=== PATIENT | male | born 1970 | race Caucasian/White ===

== ENCOUNTER 2017-08-07 10:24 | Emergency (ER) | payer SELFPAY ==
[~2017-08-07] VITALS: Ht 177.8 cm; Wt 65.8 kg
[~2017-08-07 10:24] MED LIST: CELEXA10 MG PO; HYDROCODONE1 TABLET PO; KEFLEX 500MG.500 MG PO; MOTRIN600 M1 PO; NOMEDS *; TRAMADOL 50MG T50 MG PO; VOLTAREN75 MG PO
--- NOTE | 2017-08-07 10:36 | Emergency Room Report ---
History of Present Illness Time Seen by [id number] Presenting Problem in Triage Pt arrived:Walked Presenting Problem:PT WAS CHANGING A [employer] KIDNEY PULLER WHEN IT POPPED AND CAUGHT HIS RIGHT ARM BETWEEN THE FENDER AND TIRE. PT HAS APPROX. 2 IN LAC TO THE RIGHT FOREARM AND PAIN Onset of symptoms date/time:/ or onset unknown for:MEDICAL HX UNKNOWN Treatment Prior to Arrival: SHRUB GROWER Provided by: Sepsis Risk Assessment: Temp: 97.2 B/P: 145/100 MAP: 115 Pulse: 73 Resp: 16 Recent fever? N Clinical Suspician of Infection? N Mental Status: 1 - Regular (Normal Baseline) Sepsis Risk:Low Sepsis Risk Have you (or family members/close friends) recently traveled outside the [place]? N If Yes, where/when: Have you had exposure to infectious disease within the past month? N TB? Other? Specify: Comment The patient was wearing a tire of a lawnmower that exploded, pinning his RIGHT forearm against the wheel well. He complains that his entire RIGHT upper extremity feels numb from the shoulder to the fingers. He has pain at the site of a laceration on his extensor surface of his forearm. Last tetanus shot 2 years ago. ALLERGIES Coded Allergies: No Known Allergies (06/28/16) Home Medications Reported Medications No Known Home Medications History Medical History General CAD? No Angina: No MT: No Hypertension? No Hyperlipidemia? No CHF? No DVT? No PE? No COPD? No Asthma? No Anemia? No GERD? No Gastric ulcers? No GI Bleed? No Hernia? No Thyroid Problems? No Hypothyroidism? No CVA? No Seizures? No Diabetes? No Insulin Dependent: No Insulin Pump: No Home FSBS? No Renal Insuffiency? No End Stage Renal Disease? No UTI? No Stones? No BPH? No GB Disease: No Nephritic Syndrome? No Asplenia? No Hepatitis? No Sickle Cell Disease? No Arthritis? No Migraines? No Cataracts? No Glaucoma? No MRSA? No HIV? No TB? No Anxiety? No Depression? No Cancer? Yes Site: LUNG Immunization Hx DT/Tetanus 06/28/11 Flu NEVER Pneumonia NEVER Surgical Hx Previous Surgery?Y RECONSTRUCTION ON HEAD NECK Back Surgery Family History Family Hx Diabetes Yes CAD No Hypertension No Hyperlipidemia No Cancer No TB No Social History Smoking Hx Smoker: Current Every Day Smoker Tobacco: Yes Type Cigarettes Packs/day 1 1/2 - 2 Packs Alcohol Alcohol: Yes Review of Systems All Other Systems Reviewed and Negative Musculoskeletal see HPI Skin see HPI Psychiatric/Neurological tingling Physical Exam Vital Signs Vital Signs Date Time Temp Pulse Resp B/P Pulse O2 O2 Flow FiO2 Ox Delivery Rate 08/07 1029 97.2 73 16 145/100 98 General Appearance normal appearance, no apparent distress Respiratory Status No: respiratory distress. Cardiovascular regular rate/rhythm, normal peripheral pulses Extremities 7 cm L shaped laceration extensor surface of RIGHT forearm. Wound extends into the subcu tennis fat. Muscle belly is intact. No foreign bodies, contamination, or deep structure injury seen. Distal neurovascular status intact. Normal range of motion and strength. Normal sensation., normal pulses and capillary refill. Neurologic alert, no motor/sensory deficits Medical Decision Making LABS/Meds/Orders Pt receiving controlled substance in ED? Yes Idris was queried for this patient? No Reason not queried - emergent pt cond=no time Results/Orders Current Medication Orders Sig/Ian Start time Last Medication Dose Route Stop Time Status Admin Lidocaine/Epinephrine 10 ML ONCE ONE 08/07 1045 DC SC 08/07 1046 Lidocaine/Epinephrine 0 .STK-MED ONE 08/07 1040 DC .ROUTE XRAY/CT/US XRAY/CT/US XRAY forearm Comment Forearm X-ray interpreted by Chepe Shields MD. Negative for fracture, dislocation, or foreign body. Procedures Laceration/Wound Repair Progress Laceration Repair Performed by: CHEPE SHIELDS Consent: Verbal consent obtained. Risks and benefits: risks, benefits and alternatives were discussed Consent given by: patient Patient identity confirmed: verbally with patient Laceration location: RIGHT forearm Laceration length: 7 cm Local anesthetic: 1 percent lidocaine with epinephrine Wound prep: Sterilly scrubbed with Hibiclens and irrigated with copious normal saline. Draping: Sterile in usual manner Patient sedated: no Debridement: Minimal Exploration: No foreign body or deep structure injury seen. Muscle intact. Layers Closed: Skin Suture material, skin: 5-0 Prolene Number of sutures: 14 Patient tolerance: Patient tolerated the procedure well with no immediate complications Departure Departure Disposition DC Home or Self Care(routine) Clinical Impression Primary Impression: Laceration of right forearm Qualifiers: Encounter type: initial encounter Qualified Code: S51.811A - Laceration without foreign body of right forearm, initial encounter Condition STABLE Patient Instructions DI for Laceration Repair Additional Instructions Additional instructions for LACERATION: Clean the wound daily with soap and water. You may shower. Apply a thin film of antibiotic ointment such as neosporin or triple antibiotic after showering and apply a bandage. Avoid submerging the wound, no swimming. See your primary care physician or return to the Urgent Treatment [facility] in 10 days for suture removal. Return if any signs of infection including increasing pain, pus drainage, swelling, redness, red streaks, or fever. Prescriptions Current Visit Scripts TRAMADOL HCL (Tramadol) 50 MG PO Q6HP PRN pain #6 TAB ED Critical Care Critical Care No
--- NOTE | 2017-08-07 11:08 | RADIOLOGY REPORT PS360 ---
FOREARM-RT HISTORY: Pain following injury INJURY, LACERATION ORDERING PHYSICIAN: Chepe Miranda MD PATIENT AGE: 47 years COMPARISON: None FINDINGS: No obvious fracture, dislocation, lytic change or blastic change. Normal mineralization. Unremarkable soft tissues IMPRESSION: Negative forearm
[2017-08-07] MEDS ORDERED: TRAMADOL50 M1 PO (11:16)
[2017-08-07 11:35] VITALS: BP 116/68
== END 2017-08-07 11:35 | disposition home or self-care (01) ==
LOC: ER 10:24
PROC: 0HQDXZZ Repair Right Lower Arm Skin, External Approach (ICD-10-PCS; principal; 2017-08-07)
DX: S51.811A Laceration without foreign body of right forearm, initial encounter (principal); W31.89XA Contact with other specified machinery, initial encounter; Y93.H2 Activity, gardening and landscaping; Y92.007 Garden or yard of unspecified non-institutional (private) residence as the place of occurrence of the external cause; F17.210 Nicotine dependence, cigarettes, uncomplicated